=== PATIENT | male | born 1990 | race Caucasian/White ===

== ENCOUNTER 2019-02-02 12:35 | Emergency (ER) | payer OTHER ==
[~2019-02-02] VITALS: Ht 162.6 cm; Wt 73.0 kg
[2019-02-02 12:53] VITALS: BP 114/82
--- NOTE | 2019-02-02 13:00 | NUR ---
PT REPORTS DRY COUGH X2 MONTHS. PT REPORTS FEELING A TIGHTNESS IN HIS THROAT THAT FELLS LIKE AN OBSTRUCTION, PT SPEAKING IN FULL COMPLETE SENTENCES, O2 SAT ON RA 98%, NO ACCESORY MUSCLE USE OR LABORED BREATHING NOTED. LUNG SOUNDS CLEAR AND EQUAL BILAT. DENIES N/V. BED IN LOW POSITION, SIDE RAIL UP X1.
[2019-02-02 14:08] VITALS: BP 114/82
--- NOTE | 2019-02-02 14:08 | NUR ---
Patient discharged with v/s stable. Written and verbal after care instructions given and explained. Patient alert, oriented and verbalized understanding of instructions. Ambulatory with steady gait. All questions addressed prior to discharge. ID band removed. Patient advised to follow up with PMD. Rx of CLARITIN given. Patient educated on indication of medication including possible reaction and side effects. Opportunity to ask questions provided and answered.
== END 2019-02-02 14:08 | disposition home or self-care (01) ==
LOC: MED 12:35
DX: J30.9 Allergic rhinitis, unspecified (principal); F41.9 Anxiety disorder, unspecified; F17.200 Nicotine dependence, unspecified, uncomplicated
CPT/HCPCS: 71045; 99283; Q0092

== ENCOUNTER 2020-11-12 09:39 | Emergency (ER) | payer OTHER ==
[~2020-11-12] VITALS: Ht 162.6 cm; Wt 65.8 kg
[2020-11-12 09:40] VITALS: BP 135/79
--- NOTE | 2020-11-12 09:47 | NUR ---
DR OSPINA AT BEDSIDE EXAMINING PATIENT
--- NOTE | 2020-11-12 09:49 | NUR ---
30 Y/O MALE PT C/O INCREASED HR AND "NOT FEELING WELL" SINCE THIS MORNING. RR EVEN AND UNLABORED. DENIES PAIN. AWAKE AND ALERT. VSS MEDHX: DENIES
--- NOTE | 2020-11-12 10:14 | NUR ---
PATIENT REFUSING TO PROVIDE URINE SAMPLE AND REFUSING BLOOD DRAW. DR OSPINA MADE AWARE.
--- NOTE | 2020-11-12 10:32 | NUR ---
PATIENT STATES HE IS WILLING TO GIVE URINE AND HAVE BLOOD WORK DONE. LAB AT BEDSIDE FOR BLOOD DRAW.
[2020-11-12 10:59] LABS: COCAINE, URINE POSITIVE ng/mL (NEG <=300)
[2020-11-12 11:00] LABS: BARBITURATE, URINE NEGATIVE ng/ml (NEG <=200); BENZODIAZEPINE, URINE POSITIVE ng/mL (NEG <=200); CANNABINOID, URINE NEGATIVE ng/mL (NEG <=50); OPIATE, URINE NEGATIVE ng/mL (NEG <=2000); PHENCYCLIDINE SCREEN,URINE NEGATIVE ng/mL (NEG <=25)
[2020-11-12 11:34] VITALS: BP 135/79
--- NOTE | 2020-11-12 11:35 | NUR ---
Patient discharged with v/s stable. Written and verbal after care instructions given and explained. Patient verbalized understanding. Ambulatory with steady gait. All questions addressed prior to discharge. Advised to follow up with PMD.
== END 2020-11-12 11:35 | disposition home or self-care (01) ==
LOC: MED 09:39
DX: G47.00 Insomnia, unspecified (principal); F41.9 Anxiety disorder, unspecified; Z00.01 Encounter for general adult medical examination with abnormal findings
CPT/HCPCS: 36415; 80305; 99283; G0482